=== PATIENT | female | born 1950 | race Asian ===

== ENCOUNTER 2017-05-06 06:35 | Day surgery (SDC) | payer OTHER ==
[~2017-05-06] VITALS: Ht 149.9 cm; Wt 41.8 kg
[~2017-05-06 06:35] MED LIST: SODIUM CHLORIDE 0.9% 1,000 ML IV ONE
[2017-05-06] MEDS ORDERED: LIDOCAINE HCL 4% 50 ML SOLUTION TP ONE (06:36)
[2017-05-06] MEDS ORDERED: BENZOCAINE 20% 50 MCG/SPRAY 57 GM TP ONE (06:36)
[2017-05-06] MEDS ORDERED: ALBUTEROL SULFATE 2.5 MG/0.5 ML NEB SOLUTION NEB ONE (06:36)
[2017-05-06] MEDS ORDERED: LIDOCAINE HCL 2% 30 ML JELLY TP ONE (06:36)
[2017-05-06] MEDS ORDERED: ASPI-1188 PO (07:10)
[2017-05-06] MEDS ORDERED: FAMO20 PO (07:10)
[2017-05-06] MEDS ORDERED: MONT10TA21 PO (07:10)
[2017-05-06] MEDS ORDERED: CALC-26 PO (07:10)
[2017-05-06] MEDS ORDERED: VALS80TA2 PO (07:10)
[2017-05-06] MEDS ORDERED: ESCI10TA PO (07:10)
[2017-05-06] MEDS ORDERED: GLIM4 PO (07:10)
[2017-05-06] MEDS ORDERED: P-EP-31 PO (07:10)
[2017-05-06] MEDS ORDERED: AMLO-512 PO (07:10)
[2017-05-06] MEDS ORDERED: SITA50 PO (07:10)
[2017-05-06] MEDS ORDERED: MOME13HF IH (07:10)
[2017-05-06] MEDS ORDERED: METF500T4 PO (07:10)
[2017-05-06] MEDS ORDERED: ALBU8.5H8 IH (07:10)
[2017-05-06] MEDS ORDERED: CELE200 PO (07:10)
[2017-05-06] MEDS ORDERED: DOXY100C40 PO (07:10)
[2017-05-06] MEDS ORDERED: PANT40TA25 PO (07:10)
[2017-05-06] MEDS ORDERED: SOLI5 PO (07:10)
[2017-05-06] MEDS ORDERED: BENZ-51 PO (07:10)
[2017-05-06] MEDS ORDERED: SIMV-260 PO (07:10)
[2017-05-06] MEDS ORDERED: PRED10TA3 PO (07:10)
[2017-05-06 07:22] LABS: GLUCOSE,POINT OF CARE 215 MG/DL (70-110)
[2017-05-06] MEDS ORDERED: FentaNYL CITRATE-PF 100 MCG/2 ML VIAL ONE (07:56)
[2017-05-06] MEDS ORDERED: MIDAZOLAM HCL 2 MG/2 ML VIAL ONE (07:56)
[2017-05-06] MEDS ORDERED: MethylPREDNISolone SOD SUCC 125 MG/2 ML VIAL IVP ONE (09:00)
[2017-05-06] MEDS ORDERED: MethylPREDNISolone SOD SUCC 125 MG/2 ML VIAL ONE (09:07)
[2017-05-06] MEDS ORDERED: OXYGEN THERAPY IH SCH (20:00)
== END 2017-05-06 10:35 | disposition home or self-care (01) ==
LOC: SURGERY 06:35
PROVIDERS: ATTEND Internal Medicine Critical Care Medicine
DX: J38.4 Edema of larynx (principal); B37.0 Candidal stomatitis; E11.9 Type 2 diabetes mellitus without complications; I10 Essential (primary) hypertension; Z79.82 Long term (current) use of aspirin; Z79.52 Long term (current) use of systemic steroids; Z79.899 Other long term (current) drug therapy
CPT/HCPCS: 31623; 31624; 71010; 82962; 87015 ×2; 87070; 87077; 87101; 87186; 87205; 87220; 88108; 88312; J2250; J2930; J3010; J7030